=== PATIENT | male | born 1965 | race Caucasian/White ===

== ENCOUNTER → 2023-07-05 07:17 | Outpatient (CLI) | payer OTHER, SELFPAY ==
--- NOTE | 2023-07-05 07:25 | DI.NM.S_ITS ---
PROCEDURE: NM JULIO CESAR PERF SPECT REST & STR Rest and exercise myocardial perfusion SPECT with gated imaging and ejection fraction RADIOPHARMACEUTICAL: 26 mCi Tc-99m sestamibi IV at rest and 25.5 mCi Tc-99m sestamibi IV at peak exercise. A [id number] was performed. INDICATIONS: Atherosclerotic heart disease of [place] TECHNIQUE: Radiopharmaceutical was injected at peak stress test, and also at rest. SPECT images were obtained. SPECT myocardial perfusion images were displayed in short axis, horizontal long axis, and vertical long axis views. Gated images were reviewed using [employer] software. COMPARISON: None. CARDIAC STRESS: A standard [place] treadmill exercise tolerance test was performed by the patient under the supervision of an attending staff. The patient exercised for 6 minutes and 21 seconds; 7.0 METS; functional aerobic impairment (BRAIN) is +24%. Hemodynamic data: There is normal heart rate response to exercise stress. Patient achieved 85% of maximum predicted heart rate at peak exercise. There is a flat blood pressure response. Resting blood pressure 132/90, peak exercise blood pressure 154/88 that did not increase past stage I. Symptoms: Patient complained of typical chest pain during exercise. EKG: The exercise ECG demonstrated 1.5 to [address] segment depressions in leads II and V4. There were occasional PVCs noted. FINDINGS: Raw data: There is good myocardial labeling by radiotracer. No significant motion artifacts. Csav-af-zprha ratio is 0.37 (normal is less than 0.38 for sestamibi tracer, and less than 0.50 for thallium tracer). Left ventricle function: Gated images demonstrate mild hypokinesis of the distal inferior and inferoseptal lewis. No segmental wall motion abnormality. No transient ischemic dilation; TID is 1.03 (normal less than 1.3). The left ventricle resting end-diastolic volume is 119 mL. Left ventricle stress ejection fraction is 74%; normal values are above 45%. Myocardial perfusion: There is a medium size, moderate intensity reversible distal inferior, distal inferoseptal and inferoapical defect. IMPRESSION: Abnormal study. The perfusion images suggest inducible ischemia in the distal inferior segments. The gated images show associated hypokinesis in these segments. The exercise ECG is also abnormal consistent with inducible ischemia. There is a relatively flat blood pressure response to exercise. Reduced exercise capacity. The patient complained of typical chest pain with exertion that resolved in recovery. Test results discussed with Dr. Johnson, ordering physician. Dictated by: Kathy Chen D.O. on 07/06/2023 at 17:11 Approved by: Kathy Chen D.O. on 07/06/2023 at 17:33
== END ==
PROVIDERS: PCP Family Medicine; Referring Provider Family Medicine; Visit Provider Family Medicine
DX: I25.10 Atherosclerotic heart disease of native coronary artery without angina pectoris (principal); R94.39 Abnormal result of other cardiovascular function study; R94.31 Abnormal electrocardiogram [ECG] [EKG]; R07.89 Other chest pain
CPT/HCPCS: 78452; 93017; A9502